=== PATIENT | male | born 1950 | race Caucasian/White ===

== ENCOUNTER 2018-05-15 05:29 | Inpatient (IN) | payer OTHER, BC ==
[2018-05-08 13:58] LABS: HEMATOCRIT 42.8 % (42.0-52.0); HEMOGLOBIN 14.4 gm/dL (14.0-18.0); MCH 30.2 pg (26.0-34.0); MCHC 33.6 g/dL (28.0-37.0); MCV 89.7 fL (80.0-100.0); RBC 4.77 mil/uL (4.50-6.00); RDW 13.2 % (10.5-14.5); WBC 8.3 thou/uL (4.0-11.0)
[2018-05-08 14:03] LABS: URINE BILIRUBIN NEGATIVE (Negative); URINE BLOOD NEGATIVE (Negative); URINE CLARITY CLEAR; URINE COLOR YELLOW; URINE GLUCOSE-RANDOM* TRACE (Negative); URINE KETONES NEGATIVE (Negative); URINE LEUKOCYTES-REFLEX NEGATIVE (Negative); URINE NITRITE-REFLEX NEGATIVE (Negative); URINE PROTEIN (DIPSTICK) NEGATIVE (Negative); URINE SPECIFIC GRAVITY > 1.030 (1.005-1.035); URINE UROBILINOGEN 0.2 E.U./dl (0.2-1.0)
[2018-05-08 14:08] LABS: ALBUMIN 3.5 g/dL (3.4-5.0); CALCIUM 8.8 mg/dL (8.5-10.1); CREATININE 0.9 mg/dL (0.7-1.3)
[2018-05-08 14:11] LABS: PROTIME 10.6 Seconds (9.3-11.4)
[~2018-05-15] VITALS: Ht 190.5 cm; Wt 154.2 kg
[2018-05-15] VITALS (10 sets, daily range): BP systolic 107–203; BP diastolic 57–113
--- NOTE | ~2018-05-15 | EKG ---
[address] [address] ELECTROCARDIOGRAM REPORT Name: FLAVIOYUE ANDUJAR Room #: PRE IN ..#: [id number] Admission: Attend Phys: Jh Hunter MD Discharge: Date of : 50 Report #: [id number] THIS REPORT FOR: //name// [facility] Test Date: 2018-05-08 Test Time: 13:17:30 Pat Name: YUE MUNIZ Department: Room: Gender: M Master Plumber: Veronica HURTADO : 1950 Requested By: Jh Hunter Order Number: [id number] MD: Measurements Intervals [place] Rate: 68 P: 46 OK: 214 QRS: -28 QRSD: 105 T: 42 QT: 417 QTc: 444 Interpretive Statements Sinus rhythm Borderline prolonged OK interval Borderline left axis deviation No previous ECG available for comparison [email or web address] By: 16 16 Epiphany EpiphMD [email or web address] /EPI
[~2018-05-15 05:29] MED LIST: ALLEGRA-D 12 H1 EAC1; ASPIR 8181 MG PO; BENAZEPRIL HCL40 MG PO; CLONIDINE0.1 PO; GARAMYCIN5 M1 OP; LEVOTHYROXINE0.2 M1; NORCO 5-325 TA1 EACH PO; SYNTHROID200 MCG PO; VERAPAMIL E.R240 M1 PO
--- NOTE | 2018-05-15 16:40 | EKG ---
[address] [address] ELECTROCARDIOGRAM REPORT Name: YUE MUNIZ Room #: 363-P ADM IN M.R.#: [id number] Admission: 05/15/18 Attend Phys: Jh Hunter MD Discharge: Date of : 50 Report #: [id number] THIS REPORT FOR: //name// [facility] Test Date: 2018-05-15 Test Time: 13:33:49 Pat Name: YUE MUNIZ Department: Room: 363 Gender: M Photographer News: SOFI : 1950 Requested By: Jh Hunter Order Number: [id number] MD: Berlin Nichols Measurements Intervals [place] Rate: 86 P: 25 FL: 47 QRS: -38 QRSD: 106 T: 25 QT: 385 QTc: 461 Interpretive Statements Sinus rhythm Atrial premature complex Short FL interval Probable left atrial enlargement Left axis deviation Anteroseptal infarct, age indeterminate Compared to ECG 05/08/2018 13:17:30 Atrial premature complex(es) now present Short FL interval now present Myocardial infarct finding now present Electronically Signed On 05-15-2018 16:40:48 SENIOR RESEARCH FELLOW by Berlin Nichols [email or web address] <ELECTRONICALLY SIGNED> By: Berlin Nichols MD 05/15/18 1640 1333 1333 Berlin Nichols MD /EPI
--- NOTE | 2018-05-15 18:25 | NUR ---
ASSUMED PATIENT CARE FROM PACU. A&OX4. 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 NORCO GIVEN ONCE FOR PAIN. BLOOD PRESSURE ELEVATED, HYDRALAZINE GIVEN. HOSPITALIST CONSULTED DUE TO A HIGH HEART RATE IN PACU. SR-SA ON MONITOR ON THE FLOOR. ROSS DRESSING C/D/I. HEMOVAC IN PLACE WITH ORDER TO DC TOMORROW MORNING. TEDS IN PLACE. PATIENT TAUGHT HOW TO USE IS. RT TO SET UP BIPAP. PHYSICAL THERAPY ORDERED FOR TOMORROW. VOIDING PER URINAL. HOME MEDS RESTARTED. PATIENT HAS OWN WALKER. WORKING TOWARD DC GOALS.
--- NOTE | 2018-05-16 04:15 | NUR ---
ASSUMED PT CARE AROUND 1900. A&OX4. RT HIP DRESSING C/D/I. ICE PACK IN PLACE. PT C/O HAVING GENERALIZED ACHES AND REQUESTED FOR DR TO ORDER INFLUENZA SWAB AND START TAMIFLU. SPOKE WITH ACTIVITIES DIRECTOR SCOUTING EDUCATION PARAPROFESSIONAL. ORDERS RECEIVED. PT STATED HE WAS FEELING BETTER AFTER TAKING TAMIFLU. VOIDING INDEPENDENTLY PER URINAL. PT REQUESTED NOT TO BE TURNED DURING THE NIGHT. ATTEMPTED TO USE ABDUCTOR PILLOW BUT PT REQUESTED IT BE TAKEN OFF IT WAS UNCOMFORTABLE. PT UNDERSTANDS HIP PRECAUTIONS. VSS. PROGRESSING TOWARD POC GOALS. DENIES ANY ACUTE RIGHT HIP PAIN. WILL CONTINUE TO MONITOR FURTHER.
[2018-05-16 04:32] VITALS: BP 144/73
[2018-05-16 05:48] LABS: ABSOLUTE NEUTROPHILS 10.7 thou/uL (1.4-8.2); BASOPHILS 0.1 % (0.0-2.0); HEMOGLOBIN 12.7 gm/dL (14.0-18.0); LYMPHOCYTES 11.2 % (24.0-44.0); MCH 29.7 pg (26.0-34.0); MCHC 33.5 g/dL (28.0-37.0); MCV 88.5 fL (80.0-100.0); MONOCYTES 11.8 % (1.0-8.0); PLATELET COUNT 267 thou/uL (150-400); POLYS 76.9 % (36.0-66.0); RBC 4.29 mil/uL (4.50-6.00); RDW 13.4 % (10.5-14.5)
[2018-05-16 06:08] LABS: CREATININE 1.1 mg/dL (0.7-1.3); MAGNESIUM 2.1 mg/dL (1.8-2.4); POTASSIUM 3.9 mmol/L (3.5-5.1)
--- NOTE | 2018-05-16 12:39 | NUR ---
ASSESSMENT: CM REVIEWED CHART AND MET WITH PATIENT AT THE BEDSIDE. PT HAD SURGERY ON RIGHT HIP. PT IS ALERT AND ORIENTED X4. PT REPORTS HE LIVES AT HOME WITH HIS WHO IS A PHYSICIAN (PATIENT IS ALSO A DOCTOR). PT REPORTS HAVING THREE STEPS TO ENTER HOME WITH HANDRAILS ON EACH SIDE. PT REPORTS THEY HAVE A STAIR GLIDE TO THE SECOND LEVEL. PT REPORTS HE HIS WALKER THAT IS HERE IS HIS WON THAT HE HAD BEEN WORKING WITH WITH PHYSICAL THERAPY. PT REPORTS HAVING A GRAB BAR AND SHOWER CHAIR. CM DISCUSSED ROLE AND RECOMMENDATION FOR HH. PT STATES HE HAS GREAT SUPPORT AT HOME AND DOES NOT WANT HH OR FEEL ITS NEEDED. PT DENIES FURTHER NEEDS FROM CM.
--- NOTE | 2018-05-16 12:48 | 2DMMODE ---
[facility] [employer] [address] 2 D/M-MODE ECHOCARDIOGRAM Name: FLAVIOYUE ANDUJAR Room #: 363-P ADM IN M.R.#: [id number] Admission: 05/15/18 Attend Phys: Nelly Lozano Discharge: Date of : 50 Date of Service: 05/16/18 1248 Report #: [id number] THIS REPORT FOR: //name// APPROVED REPORT Study performed: 05/16/2018 11:24:45 EXAM: Comprehensive 2D, Doppler, and color-flow Echocardiogram Patient Location: Bedside Room #: 363 Status: routine BSA: 2.75 HR: 79 bpm BP: 147/79 mmHg Rhythm: NSR Other Information Study Quality: Fair Indications Murmur Hypertension/HDD Echo Enhancing Agent Indication: Endocardial border delineation Agent(s) / Amount(s) Used: Optison 3 cc 2D Dimensions IVSd: 12.20 (7-11mm) LVOT Diam: 24.69 (18-24mm) LVDd: 46.26 mm PWd: 13.90 (7-11mm) Ascending Ao: 34.80 (22-36mm) LVDs: 28.32 (25-40mm) Aortic Root: 31.93 mm Aortic Valve AoV Peak Cassius.: 1.49 m/s AO Peak Gr.: 8.89 mmHg LVOT Max P.61 mmHg LVOT Max V: 1.18 m/s TRISTEN Vmax: 3.80 cm2 Mitral Valve E/A Ratio: 1.1 MV Decel. Time: 192.88 ms MV E Max Cassius.: 0.76 m/s MV A Cassius.: 0.68 m/s [facility] [address] [place] [address] 2 D/M-MODE ECHOCARDIOGRAM Name: YUE MUNIZ Room #: 363-P [facility] IN [facility].#: [id number] Admission: 05/15/18 Attend Phys: Nelly Lozano Discharge: Date of : 50 Date of Service: 05/16/18 1248 Report #: [id number] MV PHT: 55.94 ms IVRT: 78.43 ms Pulmonary Valve PV Peak Cassius.: 1.06 m/s PV Peak Gr.: 4.48 mmHg Pulmonary Vein P Vein S: 0.48 m/s P Vein A: 0.34 m/s P Vein D: 0.38 m/s P Vein A Dur.: 133.8 msec P Vein S/D Ratio: 1.26 Tricuspid Valve TR Peak Cassius.: 2.45 m/s TR Peak Gr.: 24.08 mmHg PA Pressure: 29.00 mmHg Left Ventricle The left ventricle is normal size. Regional wall motion is normal. Mild concentric left ventricular hypertrophy. Left ventricular systolic function is hyperdynamic. LVEF is >70%. The left ventricular diastolic function is normal. Right Ventricle The right ventricle is normal size. The right ventricular systolic function is normal. Atria Left atrium is not well visualized. Left atrium is at the upper limits of normal. Right atrium is not well visualized. Right atrium is at the upper limits of normal. Aortic Valve The aortic valve is normal in structure. No aortic regurgitation is present. There is no aortic valvular stenosis. Mitral Valve The mitral valve is normal in structure. Trace mitral regurgitation. No evidence of mitral valve stenosis. Tricuspid Valve The tricuspid valve is normal in structure. There is trace tricuspid regurgitation. Pulmonic Valve The pulmonary valve is normal in structure. There is no pulmonic valvular regurgitation. [facility] [address] [place] [address] 2 D/M-MODE ECHOCARDIOGRAM Name: YUE MUNIZ Room #: 363-P [facility] IN .R.#: [id number] Admission: 05/15/18 Attend Phys: Nelly Lozano Discharge: Date of : 50 Date of Service: 05/16/18 1248 Report #: [id number] Great Vessels The aortic root is normal in size. IVC is normal in size and collapses >50% with inspiration. Pericardium There is no pericardial effusion. <Conclusion> Technically difficult study Left ventricular systolic function is hyperdynamic. Regional wall motion is normal. LVEF is >70%. The aortic valve is normal in structure. No aortic regurgitation or stenosis The mitral valve is normal in structure. Trace mitral regurgitation Pulmonary artery pressure could not be reliably ascertained There is no pericardial effusion. <ELECTRONICALLY SIGNED> By: Ivan Polanco MD, FACC 05/16/18 1248 1248 1248 Ivan Polanco MD, FACC /INF
--- NOTE | 2018-05-16 13:27 | O ---
[facility] [place] [address] OPERATIVE REPORT Name: YUE MUNIZ Room #: 363-P ADM IN M.R.#: [id number] Admission: 05/15/18 Attend Phys: Jh Hunter MD Discharge: Date of : 50 Report #: [id number] THIS REPORT FOR: //name// CC: Jh Hunter Radha Muniz DATE OF SERVICE: 05/15/2018 PREOPERATIVE DIAGNOSIS: End-stage degenerative osteoarthritis, right hip. POSTOPERATIVE DIAGNOSIS: End-stage degenerative osteoarthritis, right hip. PROCEDURE: Right total hip arthroplasty. SURGEON: Jh Hunter MD. 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 Clinical exam and x-rays reveal severe end-stage degenerative osteoarthritis with femoral head deformity consistent with AVN. Given these findings and severe symptoms, we have elected to go ahead with surgical total hip arthroplasty. We have discussed that he may have some difficulty with postop rehabilitation given his large size. DESCRIPTION OF PROCEDURE: The patient was taken to the operating room where he was placed under general anesthesia. Prophylactic intravenous antibiotics were administered. He was turned to the left lateral decubitus position. The right hip, thigh and leg were meticulously prepped and draped. A slightly curving posterolateral skin incision was made centered over the greater trochanter. This was carried through fascia exposing the posterior aspect of the hip joint. The short external rotators and capsule were taken down and tagged with several #1 Tevdek sutures. The joint was visualized and found to be severely involved with degenerative osteoarthritis with marked spurring about the acetabulum. This resulted in severe limitation of movement, making it difficult to dislocate the hip. A moderate amount of osteophyte along the posterior margin of the acetabulum was removed with an osteotome, creating a better, more normal appearing acetabulum. The hip was then dislocated posteriorly. The femoral neck osteotomy was performed. The canal was exposed and opened with reamers and hand broaches. The Malloy and Nephew hip system was utilized. The femur seemed best suited for a size 15 stem. The neck was trimmed down to an appropriate level. The trial broach was removed and attention directed to the acetabulum. Exposure was established with some difficulty given his large size. The acetabulum was then sequentially reamed, gradually advancing to a 64-mm reamer. A Malloy and Nephew size 64 StikTite acetabular shell was then inserted. This was positioned in alignment with his true acetabulum, which placed this at about 45 degrees off of vertical and about 20 degrees of anteversion. The shell was [address] [address] OPERATIVE REPORT Name: YUE MUNIZ PRATIMA Room #: 363-P [facility] IN M.R.#: [id number] Admission: 05/15/18 Attend Phys: Jh Hunter MD Discharge: Date of : 50 Report #: [id number] impacted into position and seated nicely and appeared to be quite secure. In addition, 3 screws were placed through the apex of the shell engaging good periacetabular bone. This resulted in excellent additional stability. A 40-mm polyethylene acetabular liner was then inserted, placing the 20-degree albright at about 10 o'clock posterior position. It was snapped into place and seated nicely and appeared to be secure. The Malloy and Nephew size 15 high offset Synergy femoral component was then inserted, positioning this in about 15 degrees of anteversion. It seated nicely and appeared to be secure. A trial reduction was performed and the hip seemed best suited for a +8 mm neck length and the 40-mm head size with a trial component in place, alignment, range of motion, stability and leg length were assessed and felt to be satisfactory. The trial head was removed and the permanent 40-mm head with a +8 mm sleeve neck length was then inserted. This was impacted on the Harris taper and the hip was reduced. Once again, alignment, range of motion, stability and leg length were felt to be satisfactory. Good hemostasis was confirmed. The wound was copiously irrigated. The capsule and short external rotators were then repaired using the #1 Tevdek sutures passed through drill holes in the bone. A single Hemovac was left in the wound deep to the fascia and exiting through a separate stab incision. The fascia was then closed with multiple #1 Vicryl sutures. The subcutaneous tissues were closed with 0 Monocryl. The skin was closed with skin lonnie. A sterile dressing was applied. The patient was awakened and returned to recovery room in good condition. <ELECTRONICALLY SIGNED> By: Jh Hunter MD 05/16/18 1327 0955 1101 Jh Hunter MD /nt
--- NOTE | 2018-05-16 13:58 | NUR ---
ASSUMED PATIENT CARE AT 0715. A&OX4. PAIN UNDER CONTROL. PATIENT DID NOT WANT PAIN MEDS IN THE AFTERNOON. ROSS DRESSING C/D/I. HEMOVAC DC'D THIS MORNING. PATIENT RETAINING IN THE MORNING. PATIENT HAD A POST VOID BLADDER SCAN OF 285, PATIENT STRAIGHT CATH'D WITH 325 OUT. DOING WELL WITH PHYSICAL THERAPY. WALKED DOWN THE FRAZIER AND AROUND THE UNIT. HAS THEIR OWN WALKER. WORKING TOWARDS DC GOALS. PLAN IS TO DC 05/18/18.
[2018-05-16 15:36] VITALS: BP 102/60
[2018-05-16 20:30] VITALS: BP 117/55
[2018-05-17 04:30] VITALS: BP 118/63
[2018-05-17 05:43] LABS: HEMATOCRIT 30.1 % (42.0-52.0); MCH 30.1 pg (26.0-34.0); MCHC 33.8 g/dL (28.0-37.0); MCV 89.1 fL (80.0-100.0); RBC 3.38 mil/uL (4.50-6.00); RDW 13.3 % (10.5-14.5); WBC 11.4 thou/uL (4.0-11.0)
[2018-05-17 05:45] LABS: HEMOGLOBIN 10.2 gm/dL (14.0-18.0)
--- NOTE | 2018-05-17 05:52 | NUR ---
ASSUMED CARE AT 1900. VSS. PT A&0X4. ASSESSMENTS AND MEDS GIVEN CHARTED. PT APPEARS TO BE MANAGING PAIN WELL. HYDROCODONE GIVEN ONLY ONCE THIS SHIFT, PT RATED PAIN AT 2. PT HAD 650ML URINE OUTPUT THIS SHIFT. PT HAS BEEN STABLE OVERNIGHT, NO COMPLAINTS OF DISTRESS. PT USED HOME BIPAP TO SLEEP, HE IS BACK ON 2L NC NOW. DRESSING CHANGE DONE TO PREVIOUS DRESSING FROM WHEN HEMOVAC DRAIN WAS REMOVED. DRIED BLOOD OBSERVED. NEW DRESSING IN PLACE NOW IS CDI. ICE PACK ON HIS HIP IS STILL MAINTAINED. PT HAS BEEN STABLE ALL. HE GOT UP ONCE TO ATTEMPT TO HAVE A BM WITH 1 ASSIST, WALKER AND GB. PT TOLERATED ACTIVITY WELL. WILL CONTINUE TO MONITOR PER POC.
[2018-05-17 08:00] VITALS: BP 110/62
[2018-05-17 16:00] VITALS: BP 146/70
[2018-05-17 19:34] VITALS: BP 144/70
--- NOTE | 2018-05-17 20:21 | NUR ---
ASSUMED CARE AT 0700, SHIFT ASSESSMENT DONE, VSS. OFF FLU PRECAUTIONS PATIENT WAS NEGATIVE FOR FLU. WORKING WITH PHYSICAL THERAPHY, REMAINS 1 PERSON ASSSIT WITH A WALKR. REPROTED PAIN, PRN PAIN MEDS GIVEN. WILL CONTINUE TO ASSESS AND ASSIST WITH ADLs NEEDED.
[2018-05-18 03:57] VITALS: BP 126/62
--- NOTE | 2018-05-18 04:04 | NUR ---
Pt. requested sleep med. BEATER DUMPER notified and order for ambien received and given to pt. He stated it helped some but not much. He slept with his CPAP on and O2 at 2L/NC when not on CPAP. He has been using IS when awake 1500 ml to 1750 ml. Denies need for pain med , rated pain as 1/10. Ambulated with walker to bathroom x1 then uses urinal at times. Bed alarm on and SCD's on. Right hip dressing dry and intact. Assisted to reposition prn. Making progress towards care plan goals.
[2018-05-18 05:39] LABS: HEMATOCRIT 29.3 % (42.0-52.0); HEMOGLOBIN 10.1 gm/dL (14.0-18.0); MCH 30.4 pg (26.0-34.0); MCHC 34.3 g/dL (28.0-37.0); MCV 88.6 fL (80.0-100.0); RBC 3.31 mil/uL (4.50-6.00); WBC 10.7 thou/uL (4.0-11.0)
[2018-05-18 07:13] VITALS: BP 141/78
[2018-05-18 15:29] VITALS: BP 156/80
--- NOTE | 2018-05-18 17:18 | NUR ---
ASSUMED PATIENT CARE AT 0700. A/O X4. MAX ASSISTED WHEN GET UP. WALKED WITH PATIENT IN HALLWAY TWO TIMES WITH GAIT BELT AND WALKER. PATIENT LEFT HIP DRESSING INTACTED. 06/08 PIAN. DOES NOT WANT PAIN MEDS. VSS. NO SOB. SLOWLY TOWARDS POC GOALS.
[2018-05-18 20:20] VITALS: BP 149/67
[2018-05-19 04:05] VITALS: BP 132/69
[2018-05-19 07:22] VITALS: BP 148/79
--- NOTE | 2018-05-19 13:48 | NUR ---
SW reviewed chart and spoke with nursing and hospitalist. Pt is s/p right DAVE and is progressing towards goals for discharge. Recommendation made for pt to go to post-acute for continued therapy services. RENATA met with pt at bedside to discuss discharge plan. Pt was hopeful to go home, but is agreeable with recommednation for continued therapy. SW provided pt with options: inpt acute rehab v. SNF. Provided pt with list of SNFs for review. Pt requests eval for 5N. 5N consult ordered. RENATA notified 5N rehabilitation nurse of consult. Awaiting input from 5N at this time. RENATA is following to assist as needed with discharge planning.
[2018-05-19 15:26] VITALS: BP 119/63
--- NOTE | 2018-05-19 18:25 | NUR ---
ASSUMED PATIENT CARE AT 0700. A/O X4. UP WALK IN FRAZIER WAY WITH PT. FEELS GETTING BETTER. RIGHT HIP DRESSSING INTACT NO DRAINGE NOTED. PROGRESSING TOWARDS POC GOALS.
[2018-05-19 20:40] VITALS: BP 128/70
--- NOTE | 2018-05-20 03:07 | NUR ---
SLEPT MOST OF SHIFT IN BED. ASSISTED TO BED AT 2100 WITH ASSIST OF TWO, GAIT BELT AND WALKER. MAINTAIN SAFE ENVIRONMENT. NEEDS ASSISTANCE TO STAND UP FROM CHAIR. PROGRESSING TOWARDS GOALS FOR REHAB. WORKING ON GOALS AND PLAN OF CARE FOR NOC. ENCOURAGED IS, AND ACTIVITY. CONTINUE TO ASSES.
[2018-05-20 04:00] VITALS: BP 132/77
[2018-05-20 08:09] VITALS: BP 129/79
--- NOTE | 2018-05-20 08:19 | D ---
[facility] [place] [address] [place] [address] DISCHARGE SUMMARY Name: MUNIZYUE SNEED Room #: 363-P ADM IN M.R.#: [id number] Admission: 05/15/18 Attend Phys: Marty Quniones MD Discharge: Date of : 50 Report #: [id number] THIS REPORT FOR: //name// CC: Jh Zarateee Ricardo DATE OF SERVICE: 05/17/2018 FINAL DIAGNOSIS: End-stage degenerative osteoarthritis, right hip. OPERATIVE PROCEDURE: Right total hip arthroplasty. 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 Clinical exam and x-rays confirm severe end-stage degenerative osteoarthritis with apparent avascular necrosis and collapse of the femoral head. He has elected to go ahead with surgical reconstruction with total hip arthroplasty. HOSPITAL COURSE: The patient was admitted and taken to the operating room on 05/15/2018, he underwent right total hip arthroplasty, which he tolerated quite nicely. Postoperatively, his course has been largely unremarkable. He has been able to ambulate with a walker and with moderate assistance. He has been able to resume a regular diet. His pain has been well controlled on oral pain medication. He has resumed his usual preoperative medications. He did have a period of very mild temperature elevation and some myalgias, possibly consistent with mild flu. Those symptoms have resolved over the past 24 hours. He is feeling adequately safe and independent such that he is anxious for hospital discharge home on 05/18/2018. He will continue walker with full weightbearing, but protection for balance. He will continue with a regular diet. DISCHARGE MEDICATIONS: Include Synthroid 200 mcg daily, aspirin 81 mg daily, clonidine 0.1 mg daily, verapamil 240 mg daily, Lotensin 40 mg daily, Xarelto 10 mg daily, hydrocodone 10/325 one q.6 hours p.r.n. for pain. He will continue a regular diet at home. He will continue with careful protected activity using a walker for balance, but may be full weightbearing as tolerated. I have asked him to call should there be any problems or questions. I will plan to see him back in my office in 1 week for routine followup and in 2 weeks for suture removal. <ELECTRONICALLY SIGNED> By: Jh Hunter MD 05/20/18 0819 1010 1114 Jh Hunter MD /nt
[2018-05-20 09:07] VITALS: BP 129/79
[2018-05-20] MEDS ORDERED: LISINOPRIL40 MG PO (11:46)
[2018-05-20] MEDS ORDERED: FLOMAX0.4 MG PO (11:46)
[2018-05-20] MEDS ORDERED: XARELTO10 MG PO (11:46)
[2018-05-20] MEDS ORDERED: ASPIR 8181 MG PO (11:46)
[2018-05-20] MEDS ORDERED: NALOXONE H0.4 MG/11 IV (11:46)
[2018-05-20] MEDS ORDERED: MIRALAX17 GM PO (11:46)
[2018-05-20] MEDS ORDERED: CATAPRES0.1 MG PO (11:46)
[2018-05-20] MEDS ORDERED: VERAPAMIL HCL 880 M1 PO (11:46)
[2018-05-20] MEDS ORDERED: PANTOPRAZOLE SO40 M1 PO (11:46)
[2018-05-20] MEDS ORDERED: COLACE 100 MG100 MG PO (11:46)
[2018-05-20] MEDS ORDERED: FINASTERIDE5 MG PO (11:46)
[2018-05-20] MEDS ORDERED: SYNTHROID100 MC1 PO (11:46)
--- NOTE | 2018-05-20 12:59 | NUR ---
ASSESSMENT: CM REVIEWED CHART AND MET WITH PATIENT AT THE BEDSIDE. PT HAS ORDERS TO DISCHARGE TO [facility] ACUTE REHAB TODAY. CM MET WITH PATIENT AT THE BEDSIDE AND HE IS AGREEABLE. CM NOTIFIED [facility] WHO STATES THEY CAN ACCEPT PATIENT TODAY. PT REPORTS NO FURTHER NEEDS FROM CM.
--- NOTE | 2018-05-20 15:13 | NUR ---
ASSUMED PATIENT CARE AT 0700. PLEASANT. UP WALK IN HALLWAY. RIGHT HIP DTRESSING INTACT. PROGRESSING TOWARDS TO POC GOALS. WILL DC TO 5N AT 1600.
== END 2018-05-20 16:01 | DRG 470 ==
LOC: PRE → TBA 05:29 → 3W 05:29 → PRE 05:49 → 3W 14:00 → TBA 14:00 → 3W 14:00 → PRE 14:00 → 3W 14:01 → PRE 14:15 → ENTRNSPT 05-20 15:46 → EDTRNSPTSTS 05-20 15:49 → 3W 05-20 16:01
PROVIDERS: Nurse Practitioner; Orthopaedic Surgery; ADMIT Hospitalist
PROC: 5A09357 Assistance with Respiratory Ventilation, Less than 24 Consecutive Hours, Continuous Positive Airway Pressure (ICD-10-PCS; principal; 2018-05-15)
PROC: 0SR901Z Replacement of Right Hip Joint with Metal Synthetic Substitute, Open Approach (ICD-10-PCS; 2018-05-16)
PROC: 5A09357 Assistance with Respiratory Ventilation, Less than 24 Consecutive Hours, Continuous Positive Airway Pressure (ICD-10-PCS; 2018-05-16)
PROC: 5A09357 Assistance with Respiratory Ventilation, Less than 24 Consecutive Hours, Continuous Positive Airway Pressure (ICD-10-PCS; 2018-05-17)
DX: M16.11 Unilateral primary osteoarthritis, right hip (principal); Z68.41 Body mass index [BMI] 40.0-44.9, adult; I10 Essential (primary) hypertension; G47.33 Obstructive sleep apnea (adult) (pediatric); E03.9 Hypothyroidism, unspecified; M21.951 Unspecified acquired deformity of right thigh; I48.0 Paroxysmal atrial fibrillation; E66.9 Obesity, unspecified; R01.1 Cardiac murmur, unspecified; R26.9 Unspecified abnormalities of gait and mobility; Z79.82 Long term (current) use of aspirin; Z79.899 Other long term (current) drug therapy; Z88.2 Allergy status to sulfonamides
CPT/HCPCS: 10779; 10879; 50010; 50101; 50382; 50414; 51412; 51771; 53000; 53367; 56521; 56525; 56527; 57095; 62110; 62900; 70005

== ENCOUNTER 2018-05-20 11:57 | Inpatient (IN) | payer OTHER, BC ==
[~2018-05-20] VITALS: Ht 190.5 cm; Wt 148.8 kg
--- NOTE | ~2018-05-20 | H ---
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 On 05/15/2018, he underwent a right total hip arthroplasty by Dr. Hunter. He has had slow progress with mobility and has multiple other comorbidities and has now been admitted for acute in-hospital inpatient rehabilitation. PAST MEDICAL HISTORY: Includes exogenous obesity, obstructive sleep apnea, on BiPAP; hypertension, hypothyroidism, history of a systolic murmur. ALLERGIES: SULFA. MEDICATIONS: Please see the full medication listing. This includes vitamins, herbals, and supplements. HABITS: No history of tobacco abuse, occasional alcohol usage. SOCIAL HISTORY: Lives with his who is a retired physician, house, 3 steps in. is bedridden on a high flow O2 and unable to assist the patient. He was premorbidly independent with ADLs and IADLs, still driving, utilizing a front-wheeled walker. REVIEW OF SYSTEMS: No complaints of chest pain, shortness of breath, abdominal discomfort. No problems noted with swallowing, some right hip discomfort as expected. No other focal extremity pain complaints. No complaints of headaches or any visual problems. PHYSICAL EXAMINATION: GENERAL: Pleasant, obese 67-year-old white male in no obvious distress. VITAL SIGNS: Last recorded temperature 98.9, pulse 80, respirations 16, blood pressure 130/59. Height 6 feet 3 inches, weight 331 pounds. HEENT: Appeared to be benign. NEUROLOGIC: Cranial nerves are grossly intact. Facies are symmetric. CHEST: Sounded clear to auscultation. CARDIOVASCULAR: Regular rate and rhythm. ABDOMEN: Significantly obese, bowel sounds positive, nontender. [facility] [address] [place] [address] HISTORY AND PHYSICAL Name: YUE MUNIZ Room #: 510-P ADM IN M.R.#: [id number] Admission: 05/20/18 Attend Phys: Jh Jones MD Discharge: Date of : 50 Report #: [id number] GENITOURINARY AND RECTAL: Deferred. EXTREMITIES: He has the right hip dressing in place. The gauze over the incision sites appears to be dry. There is no calf swelling. He can dorsiflex both ankles. I would grade his strength probably at least a grade 4-/5. He is allowed weightbearing as tolerated. Transfers have been max assist to try to stand. Once up, he is ambulating a short distance with a front-wheeled walker. He premorbidly utilized a walker. In occupational therapy, min assist for lower body dressing, bathing is min assist. 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 Severe degenerative arthritis, status post right total hip arthroplasty, 05/15/2018, weightbearing as tolerated. 2. Gait instability. 3. Hypertension. 4. Obesity. 5. Obstructive sleep apnea with home BiPAP. 6. Hypothyroidism. 7. Systolic murmur. PLAN: The patient is admitted for acute in-hospital inpatient rehabilitation. From a postadmission physician evaluation perspective, there are no relevant changes since the preadmission screening. Please see the above review of prior and current medical and functional conditions and comorbidities. Please see the patient's previous and current functional status. As far as risk of complications, the patient has multiple medical comorbidities as noted above. Initial plan of care involves the interdisciplinary acute inpatient rehabilitation program with goal of maximizing the patient's functional independence, so he can hopefully return back to his prior living situation. Measurable functional goals would be for him to become modified independent with transfers, mobility, ADLs, so he can hopefully return back to his prior living situation. Prognosis is reasonably good with estimated length of stay at least 5-7 days and potentially longer as warranted. He needs to be able to transfer battery and he does have steps to get in and his will not be able to assist him at all. Potential barriers would include his multiple medical comorbidities and decreased functional status. By: [id number] Jh Jones MD /[facility]
--- NOTE | ~2018-05-20 | PLAN ---
[facility] [place] [address] [place] [address] REHAB UNIT PLAN OF CARE Name: YUE MUNIZ Room #: 510-P ADM IN M.R.#: [id number] Admission: 05/20/18 Attend Phys: Jh Jones MD Discharge: Date of : 50 Report #: [id number] THIS REPORT FOR: //name// CC: Jh Zarateee Ricardo DATE OF SERVICE: 05/23/2018 PROGRESS NOTE/OVERALL PLAN OF CARE SUBJECTIVE: The patient is seen back today in followup. He is in no distress. Temperature 36, pulse 72, respirations 18, blood pressure 105/54. No calf swelling. He still needs a lot of assistance with bed mobility and is at a max assist. Transfers, however, have improved from a max assist to mod assist, sit to stand. Once up, he is able to ambulate 150 feet min assist with a front-wheeled walker. For stairs min assist. In occupational therapy, lower body dressing is min assist. ASSESSMENT: 1. Severe degenerative arthritis, status post right total hip arthroplasty 05/15/2018, weightbearing as tolerated. 2. Gait instability. 3. Hypertension. 4. Obesity. 5. Obstructive sleep apnea with home BiPAP. 6. Hypothyroidism. 7. Systolic murmur. PLAN: The overall plan of care is based on the preadmission screen, post-admission physician evaluation and information garnered from therapy assessments. 1. Estimated length of stay is planning for discharge on next Echo, 05/27/2018. I talked to physical therapy and occupational therapy today and the patient is gradually progressing, although he still needs a lot of assistance with basic bed mobility and transfers. We felt that day could be set for 05/27/2018 and patient is amenable. 2. Medical prognosis is reasonably good. 3. Anticipated interventions includes the interdisciplinary acute inpatient rehabilitation program. 4. Anticipated functional outcomes would be for him to become modified independent with transfers, mobility, ADLs, so he can return back home. 5. Discharge destination is back home with . 6. Expected therapy by discipline includes PT and OT 1-1/2 hours per day each [facility] [address] [place] [address] REHAB UNIT PLAN OF CARE Name: YUE MUNIZ Room #: 510-P [facility] IN ..#: [id number] Admission: 05/20/18 Attend Phys: Jh Jones MD Discharge: Date of : 50 Report #: [id number] five days a week throughout the duration of the acute inpatient rehabilitation stay. By: [id number] Jh Jones MD /nt
[~2018-05-20 11:57] MED LIST changes: +CATAPRES0.1 MG PO; +COLACE 100 MG100 MG PO; +FINASTERIDE5 MG PO; +FLOMAX0.4 MG PO; +LISINOPRIL40 MG PO; +MIRALAX17 GM PO; +NALOXONE H0.4 MG/11 IV; +PANTOPRAZOLE SO40 M1 PO; +SYNTHROID100 MC1 PO; +VERAPAMIL HCL 880 M1 PO; +XARELTO10 MG PO
[2018-05-20 16:29] VITALS: BP 117/57
[2018-05-20 20:30] VITALS: BP 138/67
--- NOTE | 2018-05-21 03:24 | NUR ---
ASSUMED CARE OF PT AT 1915. PT ALERT AND ORIENTED X4, CALM AND COOPERATIVE. RIGHT HIP DRSG C/D/I. C/O PAIN IN HIP, RELIEVED WITH OXYCODONE PO. CPAP ON AT HS, PT APPEARS TO BE SLEEPING WHEN CHECKED ON HOURLY ROUNDS. FALL PRECAUTIONS IN PLACE.
[2018-05-21 04:12] LABS: CALCIUM 8.5 mg/dL (8.5-10.1); POTASSIUM 4.1 mmol/L (3.5-5.1)
[2018-05-21 04:24] LABS: HEMATOCRIT 30.9 % (42.0-52.0); HEMOGLOBIN 10.3 gm/dL (14.0-18.0); MCH 29.8 pg (26.0-34.0); MCHC 33.4 g/dL (28.0-37.0); MCV 89.2 fL (80.0-100.0); RBC 3.46 mil/uL (4.50-6.00); RDW 13.4 % (10.5-14.5); WBC 11.9 thou/uL (4.0-11.0)
--- NOTE | 2018-05-21 08:00 | NUR ---
cm visited with pt this am, he up working with physical therapy before breakfast. intro to cm, dcp, and team meetings. 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 per pt and chart " lives at home with , 3 steps with hand rails on both sides to into home, has walker, grab bars in bathroom, shower chair, stair glide up to 2nd level. manages own medication, driving vehicle prior to hospital."/erick. will cont following as needed for dc needs.
--- NOTE | 2018-05-21 13:58 | NUR ---
Nutrition: pt admit with severe DJD, S/P right total hip arthroplasty, HTN. Seen due to consult for "rehab admission". Pt eating 100% of meals on regular diet and voices no questions for RD. BMI 41, extreme class [address] if education desires arise. Consider low nutrition risk.
--- NOTE | 2018-05-21 15:50 | NUR ---
ASSUMED CARE AT APPROX 0715. PATIENT A/O X4. C/O PAIN IN R HIP. ROSS DRESSING C/D/I. MEDICATED PRIOR TO THERAPY. ICE PACK APPLIED. BP MEDS GIVEN PER ORDERS. VSS. PARTICIPATED IN THERAPY. UP IN RECLINER WHEN AT REST BETWEEN THERAPIES, LEGS ELEVATED. FALL PRECAUTIOSN IN PLACE. WILL CONTINUE TO MONITOR.
[2018-05-21 19:47] VITALS: BP 137/63
--- NOTE | 2018-05-22 01:07 | NUR ---
ASSUMED CARE OF PT AT 1915. PT ALERT AND ORIENTED X4, CALM AND COOPERATIVE. PT C/O RIGHT HIP PAIN X1, RELIEVED WITH LORTAB PO. RIGHT HIP DRSG C/D/I. VOIDING WITHOUT DIFFICULTY USING URINAL, SMALL AMOUNT OF BLOOD NOTED. CPAP PLACED AT HS. CHECKED ON HOURLY ROUNDS. FALL PRECAUTIONS IN PLACE.
--- NOTE | 2018-05-22 13:32 | NUR ---
ASSUMED CARE AT 0700. PATIENT IS ALERT AND ORIENTEDX4. PATIENT MORRIS'S, RECONDITIONING ASSOCIATE ARE EQUAL. PATIENT HAS RIGHT TOTAL HIP ROSS DRESSING THAT IS DRY AND INTACT. LUNGS ARE CLEAR. ABD IS SOFT WITH BSX4. FALL AND SAFETY PROTOCOLS IN PLACE. C/O MILD PAIN IN HIS RIGHT HIP. MEDICATED WITH OXYCODONE PO PRIOR TO P.T. CONTINUES TO PROGRESS TOWARDS D/C GOALS. WILL CONTINUE TO MONITER.
[2018-05-22 20:03] VITALS: BP 105/54
--- NOTE | 2018-05-23 04:00 | NUR ---
ASKED TO BE ALLOWED TO SLEEP AND NOT TURN EVERY 2 HOURS IF SLEEPING. ASKED FOR ASSIST TO TURN TO LEFT AT 0030, PILLOW BETWEEN LEGS TO MAINTAIN HIP PRECAUTIONS. ROSS DRESSING TO RIGHT HIP CDI. TOLERATING HOME CPAP UNIT, DENIES PAIN. USING URINAL. PLEASANT
[2018-05-23 07:45] VITALS: BP 112/63
--- NOTE | 2018-05-23 12:34 | NUR ---
ASSUMED CARES AT 0700. PT AWAKE, ALERT AND ORIENTED*4. DENIES PAIN. VITALS STABLE. RIGHT HIP DRESSING REMAINS DRY AND INTACT. PT UP WITH 1 PERSON MIN ASSIST AND AMBULATING SHORT DISTANCES WITH PT TOLERATED. Q1H VISUAL CHECKS. CALL LIGHT WITHIN REACH. FALL PRECAUTIONS IN PLACE
--- NOTE | 2018-05-23 19:40 | NUR ---
ABLE TO STAND AT EDGE OF BED AND, WITH HIS WALKER, TAKE A FEW STEPS TOWARDS AND OVER THE FRONT LIP OF THE STAND UP SCALE.
[2018-05-23 20:20] VITALS: BP 169/78
--- NOTE | 2018-05-24 01:20 | NUR ---
TURNED MINIMALLY TO LEFT WITH PILLOW BETWEEN KNEES. USING URINAL. DENIES PAIN AND HAS BEEN TAKING PAIN PILL ROUTINELY BEFORE EACH PT SESSION IN ORDER TO WALK FURTHER. ROSS DRESSING DRAIN PUMP IS SPENT AFTER THE SEVENTH DAY, DRESSING CDI, TUBING TAIL TRIMMED TO 3 INCHES
[2018-05-24 08:30] VITALS: BP 131/76
--- NOTE | 2018-05-24 10:02 | NUR ---
ASSUMED CARES AT 0700. PT AWAKE, ALERT AND [id number]. C/O PAIN IN RIGHT HIP WITH ACTIVITY, PAIN MEDICATION ADMINISTERED PRIOR TO PHYSICAL THERAPY PER Pt'S REQUEST. ROSS DRESSING ON RIGHT HIP REMAINS INTACT AND DRY. PT CONTINUES TO HAVE EDEMA IN BLE, RIGHT HIP REMAINS TIGHT BUT IMPROVED PER PT. PT UP WITH 1 PERSON MIN ASSIST, AMBULATING THE HALLWAY WITH PT AND TOLERATED WELL. Q1H VISUAL CHECKS. CALL LIGHT WITHIN REACH. FALL PRECAUTIONS IN PLACE
[2018-05-24 19:28] VITALS: BP 166/72
--- NOTE | 2018-05-25 02:12 | NUR ---
ASSUMED CARE OF PT AT 1915. PT ALERT AND ORIENTED X4. C/O RIGHT HIP PAIN, RELIEVED WITH OXYCODONE AT HS. DRSG ON RIGHT HIP IS C/D/I. PT TRANSFERRED FROM CHAIR TO BED WITH MIN ASSIST OF ONE USING GAIT BELT AND WALKER. PT DID NEED ASSIST TO RISE FROM CHAIR. HAS APPEARED TO BE SLEEPING WHEN CHECKED ON HOURLY ROUNDS. BED ALARM ON.
[2018-05-25 07:40] VITALS: BP 156/67
--- NOTE | 2018-05-25 10:21 | NUR ---
ASSUMED CARE AT 0700. PATIENT IS ALERT AND ORIENTED X4. PATIENT MORRIS'S AND SPA SUPERVISOR ARE EQUAL. LUNGS ARE CLEAR. ABD IS SOFT WITH BSX4. RIGHT HIP DRESSING IS DRY AND INTACT. PILLOWS ARE IN PLACE BETWEEN HIS KNEES TO PREVENT INTERNAL ROTATION. PATIENT IS UP WITH ASSIST OF 1 STAFF AND GAIT BELT, AND WALKER. FALL AND SAFETY [id number] IN PLACE. DENIES PAIN AT THIS TIME. CONTINUES TO PROGRESS TOWARDS D/C GOALS. WILL CONTINUE TO MONITER.
[2018-05-25 19:16] VITALS: BP 121/52
--- NOTE | 2018-05-25 19:38 | HC ---
[facility] [place] [address] [place] [address] CONSULTATION Name: YUE MUNIZ Room #: 510-P [facility] IN M.R.#: [id number] Admission: 05/20/18 Attend Phys: Jh Jones MD Discharge: Date of : 50 Report #: [id number] THIS REPORT FOR: //name// CC: Jh Jones Radha Ricardo DATE OF SERVICE: 05/24/2018 TYPE OF REPORT: Psychological consultation. ATTENDING PHYSICIAN: Jh Jones M.D. ORE DRYER: Zi Cheng, PhD. CLINICAL PRESENTATION: The patient is a 67-year-old male admitted to the Rehabilitation Unit for inpatient rehabilitation program to improve functional mobility, activities of daily living and self-care secondary to deficits from severe right hip degenerative arthritis. The patient underwent a right total hip arthroplasty and has required inpatient rehabilitation to improve mobility. 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 He was independent with activities of daily living including driving He does not report symptoms of anxiety or depression at this time or indicate having difficulty in cognitive functioning. His description of current events, medical interests and aspects of research interests suggest well maintained cognition. Mood appears optimistic and positive about his recovery. He does not indicate difficulty with appetite, sleep or general energy level. Frustration is likely as a result of the need for his hip arthroplasty and the difficulty in managing pain. His activity level at home has been sedentary and poor choices in diet that have interfered with maintaining a more healthy lifestyle. The patient may benefit from a dietary consultation to assist in nutritional management. Additional outpatient physical therapy will be necessary to maintain momentum in general conditioning. Thank you very much for allowing me to provide the consultation on this patient. <ELECTRONICALLY SIGNED> By: Zi Cheng, PhD 05/25/18 [id number] Zi Cheng, PhD /nt
--- NOTE | 2018-05-26 00:54 | NUR ---
PT LYING IN BED. DENIES NEED FOR PAIN MEDICATION. RESTING COMFORTABLY. NO NEEDS VOICED. CALL LIGHT WITHIN REACH. WILL CONTINUE TO PROVIDE FREQUENT OBSERVATION.
[2018-05-26 08:30] VITALS: BP 110/58
--- NOTE | 2018-05-26 12:43 | NUR ---
cm visited with pt at bedside, [place] health [place] on , education on home health in home for physical therapy. " well call if need it"/erick. education that after dc pcp or ortho physician would need to set up home if not done prior to dc. " understand have physician in home, my . we have body vibration system and found works better than rehab"/erick. information passed on to physical therapy that pt is decline home health at [facility].
--- NOTE | 2018-05-26 20:01 | NUR ---
ASSUMED PT CARE AT 0700H. PT A&O X4. PT STATES NO PAIN. PT HAS NO S/S OF DISTRESS. PT VERBALIZES CORNCERNS. PT CALLS APPROPRIATE. PT L HIP DRS C/D/I X2. PT TOLERATES THERAPY FROM AMBULATING TO EXERCISES. PT STATED TOO SOFT STOOLS AND REFUSED CONSTIPATION MEDS. PT BP AT THE TIME OF ADMINISTERING IS 110/58 MEDS NOT GIVEN. CALL LIGHT AT BEDSIDE AND PT CONTINUES TO BE MONITORED FOR SAFETY.
[2018-05-26 20:31] VITALS: BP 123/59
--- NOTE | 2018-05-27 06:47 | NUR ---
denies pain. calm, pleasant. right hip ROSS dressing intact. anticipating discharge home today.
[2018-05-27 08:18] VITALS: BP 141/73
[2018-05-27] MEDS ORDERED: XARELTO10 MG PO (09:46)
[2018-05-27] MEDS ORDERED: PERCOCET PO (09:46)
[2018-05-27] MEDS ORDERED: CATAPRES0.1 MG PO (09:46)
[2018-05-27 10:22] VITALS: BP 132/73
--- NOTE | 2018-05-27 10:36 | NUR ---
ASSUMED CARES AT 0700. PT AWAKE, ALERT AND ORIENTED*4. DENIES PAIN AT THIS TIME. VITALS REMAINED STABLE. HS STABLE, CONTINUES TO HAVE BLE EDEMA, 2+ IN RLE AND TRACE IN LLE. INCISION ON LEFT HIP REMAINS DRY AND INTACT. PT UP WITH 1 PERSON SBA, WEIGHT BEARING ON RLE TOLERATED. PT READY TO DC TO HOME TODAY. PT TEACHING TO BE COMPLETED. Q1H VISUAL CHECKS. CALL LIGHT WITHIN REACH. FALL PRECAUTIONS IN PLACE
[2018-05-27 11:08] VITALS: BP 132/73
== END 2018-05-27 11:35 | disposition home or self-care (01) | DRG 554 ==
LOC: ENTRNSPT 05-27 11:27 → EDTRNSPTSTS 05-27 11:30
PROVIDERS: Nurse Practitioner Family; ADMIT Physical Medicine & Rehabilitation
PROC: 5A09357 Assistance with Respiratory Ventilation, Less than 24 Consecutive Hours, Continuous Positive Airway Pressure (ICD-10-PCS; principal; 2018-05-25)
DX: M16.11 Unilateral primary osteoarthritis, right hip (principal); Z68.41 Body mass index [BMI] 40.0-44.9, adult; I10 Essential (primary) hypertension; R26.9 Unspecified abnormalities of gait and mobility; E66.9 Obesity, unspecified; G47.33 Obstructive sleep apnea (adult) (pediatric); E03.9 Hypothyroidism, unspecified; R33.9 Retention of urine, unspecified; R01.1 Cardiac murmur, unspecified; J11.1 Influenza due to unidentified influenza virus with other respiratory manifestations; D64.9 Anemia, unspecified; Z88.2 Allergy status to sulfonamides
CPT/HCPCS: 10112